=== PATIENT | female | born 1995 | race African-American/Black ===

== ENCOUNTER 2016-11-05 10:23 | Emergency (ER) | payer MEDICAID ==
[~2016-11-05] VITALS: Ht 165.1 cm; Wt 65.0 kg
[2016-11-05] MEDS ORDERED: SODIUM CHLORIDE 0.9% 1,000 ML IV ONE (10:49)
[2016-11-05] MEDS ORDERED: ONDANSETRON HCL 4MG/2ML VIAL IV STA ×2 (10:49→12:10)
[2016-11-05 11:07] LABS: CLARITY URINE CLEAR (CLEAR); COLOR URINE YELLOW (YELLOW); GLUCOSE URINE NEGATIVE (NEGATIVE); KETONES URINE TRACE (NEGATIVE); LEUKOCYTE ESTERASE URINE 1+ (NEGATIVE); NITRITE URINE NEGATIVE (NEGATIVE); OCCULT BLOOD URINE NEGATIVE (NEGATIVE); PH URINE 7.5 (4.5-8.0); PROTEIN URINE NEGATIVE (NEGATIVE); SPECIFIC GRAVITY URINE 1.027 (1.005-1.030)
[2016-11-05 11:08] LABS: BASOPHILS % 1.8 % (0.0-2.0); EOSINOPHILS % 0.3 % (0.0-5.0); HEMATOCRIT. 35.5 % (36.0-48.0); HEMOGLOBIN. 10.9 g/dL (12.0-16.0); LYMPHOCYTES % 14.4 % (20.0-50.0); MEAN CORPUSCULAR HEMOGLOBIN 20.1 pg (28.0-32.0); MEAN CORPUSCULAR HGB CONC 30.8 g/dL (31.0-37.0); MEAN CORPUSCULAR VOLUME 65.2 fL (81.0-99.0); MONOCYTES % 6.7 % (2.0-8.0); NEUTROPHILS % 76.8 % (40.0-76.0); PLATELET 239 x1000/uL (130-400); RED BLOOD CELL COUNT 5.44 mill/uL (4.2-5.4); RED CELL DISTRIBUTION WIDTH 15.4 % (11.6-14.6); WHITE BLOOD COUNT 4.9 x1000/uL (4.5-11.0)
[2016-11-05 11:11] LABS: ADD RBC MORPHOLOGY YES; DIFFERENTIAL COMMENT 1
[2016-11-05 11:12] LABS: INR 1.1; PROTHROMBIN TIME 11.8 sec
[2016-11-05 11:19] LABS: ALANINE AMINOTRANSFERASE 11 IU/L (13-61); ALBUMIN 3.9 g/dL (3.4-5.0); ANION GAP 11; CALCIUM 9.2 mg/dL (8.5-10.1); CARBON DIOXIDE 28 mEq/L (21-32); CHLORIDE 108 mEq/L (98-107); INDEX HEMOLYSI 1 (1-3); INDEX ICTERIC 1 (1-4); INDEX LIPEMIC 1 (1-3); LIPASE 82 IU/L (73-393); UREA NITROGEN BLOOD 9 mg/dL (7-21); eGFR > 60 mL/min (>60)
[2016-11-05 11:44] LABS: MUCUS URINE 3+ /lpf (< = 2+); SQUAMOUS EPITHELIAL CELL URINE 2+ /lpf (RARE/1+)
[2016-11-05 11:46] LABS: RBC URINE 0-2 /hpf (0-2)
[2016-11-05 11:47] LABS: BACTERIA URINE 2+; CALCIUM OXALATE CRYSTALS URINE 2+ /lpf
[2016-11-05 11:52] LABS: HYPOCHROMASIA 1+; PLATELET ESTIMATE NORMAL
[2016-11-05] MEDS ORDERED: MORPHINE SULFATE 4 MG/ML CPJ (NOT FOR IM USE) IV STA (12:10)
[2016-11-05 13:11] VITALS: BP 126/68
== END 2016-11-05 13:14 | disposition home or self-care (01) ==
LOC: ER 11:54
DX: N39.0 Urinary tract infection, site not specified (principal); A08.4 Viral intestinal infection, unspecified; F17.210 Nicotine dependence, cigarettes, uncomplicated
CPT/HCPCS: 36415; 80053; 81001; 81025; 83690; 85025; 85610; 96361; 96374; 96375; 96376; 99285; J2270; J2405; J7030; Z7610

== ENCOUNTER 2017-01-12 11:47 | Emergency (ER) | payer MEDICAID ==
[~2017-01-12] VITALS: Ht 167.6 cm; Wt 102.0 kg
[2017-01-12 11:54] VITALS: BP 127/68
[2017-01-12] MEDS ORDERED: DIPHENHYDRAMINE 25MG CAPSULE PO ONE (13:30)
[2017-01-12] MEDS ORDERED: METHYLPREDNISOLONE SOD SUCC 125 MG/2 ML VIAL IM ONE (13:30)
[2017-01-12] MEDS ORDERED: FAMOTIDINE 20MG TABLET PO SCH ×2 (14:15→21:00)
== END 2017-01-12 14:57 | disposition home or self-care (01) ==
LOC: ER 11:47
DX: T78.40XA Allergy, unspecified, initial encounter (principal); F12.10 Cannabis abuse, uncomplicated; N39.0 Urinary tract infection, site not specified
CPT/HCPCS: 96372; 99283; J2930; Q0163

== ENCOUNTER 2018-10-07 15:07 | Emergency (ER) | payer MEDICAID ==
[~2018-10-07] VITALS: Ht 172.7 cm; Wt 84.0 kg
[2018-10-07] MEDS ORDERED: KETOROLAC 30MG/ML VIAL IV STA (15:29)
[2018-10-07] MEDS ORDERED: ONDANSETRON HCL 4MG/2ML INJ IV STA (15:29)
[2018-10-07] MEDS ORDERED: MAGNESIUM/ALUMINUM HYDROXIDE/SIMETHICONE 30ML UDC PO STA (15:29)
[2018-10-07] MEDS ORDERED: SODIUM CHLORIDE 0.9% 1,000 ML IV ONE (15:29)
[2018-10-07 16:03] LABS: HEMATOCRIT. 36.2 % (36.0-48.0); HEMOGLOBIN. 11.5 g/dL (12.0-16.0); MEAN CORPUSCULAR HEMOGLOBIN 20.4 pg (28.0-32.0); MEAN CORPUSCULAR VOLUME 64.5 fL (81.0-99.0); PLATELET 285 x1000/uL (130-400); RED BLOOD CELL COUNT 5.61 mill/uL (4.2-5.4); RED CELL DISTRIBUTION WIDTH 15.7 % (11.6-14.6)
[2018-10-07 16:04] LABS: CHLORIDE 108 mEq/L (98-107)
[2018-10-07 16:08] LABS: ETHANOL BLOOD < 10 mg/dL
[2018-10-07] MEDS ORDERED: HALOPERIDOL LACTATE 5MG/ML VIAL IM ONE (16:15)
[2018-10-07 16:21] LABS: HCG SCREEN NEGATIVE
[2018-10-07 16:57] LABS: CLARITY URINE CLEAR (CLEAR); COLOR URINE YELLOW (YELLOW); KETONES URINE 1+ (NEGATIVE); LEUKOCYTE ESTERASE URINE NEGATIVE (NEGATIVE); NITRITE URINE NEGATIVE (NEGATIVE); OCCULT BLOOD URINE NEGATIVE (NEGATIVE); PH URINE >=9.0 (4.5-8.0); PROTEIN URINE 2+ (NEGATIVE); SPECIFIC GRAVITY URINE 1.025 (1.005-1.030); UROBILINOGEN URINE 0.2 E.U./dL (0.2-1.0)
[2018-10-07 17:12] LABS: PLATELET ESTIMATE NORMAL
[2018-10-07] MEDS ORDERED: MORPHINE SULFATE 4 MG/ML CPJ (NOT FOR IM USE) IV ONE (17:45)
[2018-10-07] MEDS ORDERED: ONDANSETRON HCL 4MG/2ML INJ IV ONE (17:45)
[2018-10-07 18:42] VITALS: BP 122/79
== END 2018-10-07 18:43 | disposition home or self-care (01) ==
LOC: ER 15:26
DX: R10.33 Periumbilical pain (principal)
CPT/HCPCS: 36415; 74176; 80053; 80320; 81003; 81025; 83690; 84703; 85025; 96361; 96372; 96374; 96375; 99284; J1630; J1885; J2405; J7030; G0480

== ENCOUNTER 2020-08-11 10:52 | Emergency (ER) | payer MEDICAID, OTHER ==
[~2020-08-11] VITALS: Ht 165.1 cm; Wt 88.5 kg
[2020-08-11] MEDS ORDERED: ONDANSETRON HCL 4MG/2ML INJ IV STA (11:11)
[2020-08-11] MEDS ORDERED: SODIUM CHLORIDE 0.9% 1,000 ML IV ONE (11:15)
[2020-08-11] MEDS ORDERED: KETOROLAC 15MG/ML VIAL IV ONE (11:45)
[2020-08-11 11:46] LABS: BASOPHILS % 0.8 % (0.0-2.0); CHLORIDE 112 mEq/L (98-107); HEMATOCRIT. 35.4 % (36.0-48.0); HEMOGLOBIN. 10.9 g/dL (12.0-16.0); LYMPHOCYTES % 12.4 % (20.0-50.0); MEAN CORPUSCULAR HEMOGLOBIN 19.7 pg (28.0-32.0); MEAN CORPUSCULAR VOLUME 64.2 fL (81.0-99.0); MEAN PLATELET VOLUME 9.2 fl (7.4-10.4); MONOCYTES % 4.6 % (2.0-8.0); NEUTROPHILS % 82.2 % (40.0-76.0); PLATELET 202 x1000/uL (130-400); RED BLOOD CELL COUNT 5.52 mill/uL (4.2-5.4); RED CELL DISTRIBUTION WIDTH 15.8 % (11.6-14.6)
[2020-08-11 11:49] LABS: INR 1.2; PROTHROMBIN TIME 12.2 sec (9.6-11.0)
[2020-08-11 11:52] LABS: ETHANOL BLOOD < 10 mg/dL
[2020-08-11 12:14] LABS: PLATELET ESTIMATE NORMAL
[2020-08-11] MEDS ORDERED: METOCLOPRAMIDE HCL 10MG/2ML VIAL IV ONE (14:45)
[2020-08-11 15:29] LABS: HCG SCREEN NEGATIVE
[2020-08-11] MEDS ORDERED: KCL 20MEQ/100ML PREMIX 100 ML IV ONE (16:30)
[2020-08-11] MEDS ORDERED: SODIUM CHLORIDE 0.9% 500 ML IV ONE (16:30)
[2020-08-11] MEDS ORDERED: ONDA4TAB5 MT (16:30)
[2020-08-11] MEDS ORDERED: LORAZEPAM 2MG/ML CPJ IV ONE (16:30)
[2020-08-11] MEDS ORDERED: OMEP40CA12 MT (16:31)
[2020-08-11] MEDS ORDERED: MORPHINE SULFATE 2 MG/ML CPJ (NOT FOR IM USE) IV ONE (16:45)
[2020-08-11] MEDS ORDERED: HALOPERIDOL LACTATE 5MG/ML VIAL IM ONE (17:00)
[2020-08-11 20:37] VITALS: BP 139/85
== END 2020-08-11 20:39 | disposition home or self-care (01) ==
LOC: ER 10:52
DX: R10.13 Epigastric pain (principal); E87.6 Hypokalemia; R55 Syncope and collapse; R53.1 Weakness; R03.0 Elevated blood-pressure reading, without diagnosis of hypertension
CPT/HCPCS: 36415; 71045; 74176; 80053; 80320; 84703; 85025; 85610; 93005; 96361; 96365; 96366; 96372; 96375; 99285; J1630; J1885; J2060; J2405; J2765; J3480; J7030; J7040; G0480

== ENCOUNTER 2020-11-09 12:14 | Emergency (ER) | payer OTHER ==
[~2020-11-09] VITALS: Ht 172.7 cm; Wt 100.0 kg
[~2020-11-09 12:14] MED LIST: OMEP40CA12 MT; ONDA4TAB5 MT
[2020-11-09 12:18] VITALS: BP 143/85
[2020-11-09] MEDS ORDERED: FAMOTIDINE 20MG/2ML VIAL IV STA (12:26)
[2020-11-09] MEDS ORDERED: ONDANSETRON HCL 4MG/2ML INJ IV STA (12:26)
[2020-11-09] MEDS ORDERED: SODIUM CHLORIDE 0.9% 1,000 ML IV ONE (12:30)
[2020-11-09 12:57] LABS: HEMATOCRIT. 38.7 % (36.0-48.0); HEMOGLOBIN. 12.4 g/dL (12.0-16.0); LYMPHOCYTES % 18.2 % (20.0-50.0); MEAN CORPUSCULAR HEMOGLOBIN 20.8 pg (28.0-32.0); MEAN CORPUSCULAR VOLUME 64.7 fL (81.0-99.0); MEAN PLATELET VOLUME 9.1 fl (7.4-10.4); MONOCYTES % 4.8 % (2.0-8.0); PLATELET 250 x1000/uL (130-400); RED BLOOD CELL COUNT 5.97 mill/uL (4.2-5.4); RED CELL DISTRIBUTION WIDTH 15.6 % (11.6-14.6)
[2020-11-09 13:08] LABS: CHLORIDE 109 mEq/L (98-107)
[2020-11-09 13:11] LABS: INR 1.1
[2020-11-09 13:12] LABS: ETHANOL BLOOD 26 mg/dL
[2020-11-09] MEDS ORDERED: MAGNESIUM/ALUMINUM HYDROXIDE/SIMETHICONE 30ML UDC PO ONE (13:15)
[2020-11-09 13:19] LABS: HCG SCREEN NEGATIVE
[2020-11-09 13:37] LABS: PLATELET ESTIMATE NORMAL
[2020-11-09] MEDS ORDERED: METOCLOPRAMIDE HCL 10MG/2ML VIAL IV ONE (14:15)
[2020-11-09] MEDS ORDERED: HALOPERIDOL LACTATE 5MG/ML VIAL IM ONE (14:15)
[2020-11-09 15:55] LABS: CLARITY URINE CLEAR (CLEAR); COLOR URINE YELLOW (YELLOW); KETONES URINE 3+ (NEGATIVE); LEUKOCYTE ESTERASE URINE NEGATIVE (NEGATIVE); NITRITE URINE NEGATIVE (NEGATIVE); OCCULT BLOOD URINE NEGATIVE (NEGATIVE); PH URINE 8.5 (4.5-8.0); PROTEIN URINE 2+ (NEGATIVE); SPECIFIC GRAVITY URINE 1.025 (1.005-1.030); UROBILINOGEN URINE 0.2 E.U./dL (0.2-1.0)
[2020-11-09 16:15] LABS: *AMPHETAMINES SCREEN URINE NEGATIVE (NEGATIVE); *BARBITURATES SCREEN URINE NEGATIVE (NEGATIVE); *BENZODIAZEPINES SCREEN URINE NEGATIVE (NEGATIVE); *COCAINE SCREEN URINE NEGATIVE (NEGATIVE); METHADONE URINE SCREEN NEGATIVE (NEGATIVE); OPIATES URINE SCREEN NEGATIVE (NEGATIVE); PHENCYCLIDINE URINE SCREEN NEGATIVE (NEGATIVE)
[2020-11-09 16:20] LABS: CANNABINOID URINE SCREEN PRESUMTIVE POSITIVE (NEGATIVE)
== END 2020-11-09 17:22 | disposition left against medical advice (07) ==
LOC: ER 12:33
DX: R11.2 Nausea with vomiting, unspecified (principal); R10.13 Epigastric pain; F10.129 Alcohol abuse with intoxication, unspecified; Y90.1 Blood alcohol level of 20-39 mg/100 ml
CPT/HCPCS: 36415; 71045; 74176; 80053; 80305; 80320; 81003; 83690; 84703; 85025; 85610; 96361; 96372; 96374; 96375; 99285; J1630; J2405; J2765; J3490; J7030; J7040; G0480